=== PATIENT | male | born 1975 | race American Indian/Alaskan Native ===

== ENCOUNTER 2018-11-16 23:53 | Inpatient (IN) | payer MEDICARE ==
[2018-11-17] MEDS ORDERED: BENADRYL IV ONE (00:19)
[2018-11-17] MEDS ORDERED: NACL 0.9% 1000 ML 1,000 ML IV ONE (00:19)
[2018-11-17] MEDS ORDERED: ZOFRAN IV ONE (00:19)
[2018-11-17 00:49] LABS: Basophils # (Auto) 0.1 K/mm3 (0.0-0.1); Basophils % (Auto) 0.9 % (0.0-1.8); Eosinophils # (Auto) 0.1 K/mm3 (0.0-0.4); Eosinophils % (Auto) 1.2 % (0.0-4.3); Hematocrit 33.3 % (35.5-45.6); Hemoglobin 10.2 gm/dl (11.8-15.2); Lymphocytes # (Auto) 1.8 K/mm3 (1.2-5.4); Lymphocytes % (Auto) 19.5 % (13.4-35.0); Mean Corpuscular HGB Conc 31 % (32-34); Mean Corpuscular Volume 73 fl (84-94); Monocytes # (Auto) 0.9 K/mm3 (0.0-0.8); Platelet Count 343 K/mm3 (140-440); Red Blood Count 4.57 M/mm3 (3.65-5.03)
[2018-11-17 00:52] LABS: Mean Corpuscular Hemoglobin 22 pg (28-32); Red Cell Distribution Width 21.6 % (13.2-15.2)
[2018-11-17 01:04] LABS: Bilirubin,Urine NEG (Negative); Blood,Urine NEG (Negative); Color,Urine Yellow (Yellow); Mucus,Urine FEW /HPF; Protein,Urine <15 mg/dL mg/dL (Negative); Urobilinogen,Urine < 2.0 mg/dL (<2.0); WBC,Urine < 1.0 /HPF (0.0-6.0)
[2018-11-17 01:07] LABS: BUN/Creatinine Ratio 23; Blood Urea Nitrogen 21 mg/dL (9-20); Calcium 9.2 mg/dL (8.4-10.2); Hemolysis Index 19
[2018-11-17] MEDS ORDERED: ATIVAN IV ONE (01:30)
[2018-11-17 01:35] LABS: Amphetamine Screen,Urine PRESUMPTIVE NEGATIVE; Benzodiazepines Screen,Urine PRESUMPTIVE NEGATIVE; Cannabinoid Screen,Urine PRESUMPTIVE NEGATIVE; Cocaine Screen,Urine PRESUMPTIVE NEGATIVE; Methadone Screen,Urine PRESUMPTIVE NEGATIVE; Opiate Screen,Urine PRESUMPTIVE NEGATIVE
--- NOTE | 2018-11-17 02:28 | Emergency Department Report ---
ED General Adult HPI - General Chief complaint: Abdominal Pain Stated complaint: ABDOMINAL PAIN Time Seen by Provider: 11/17/18 00:03 Source: patient, EMS Mode of arrival: Stretcher Limitations: Physical Limitation - History of Present Illness Initial comments: Please see amount of history of bipolar disorder and tardive dyskinesia returns to ED for tardive dyskinesia treatment. Pt staying at [facility]. Staff called EMS due to pt's symptoms. Pt was seen in ED yesterday for same. Pt was supposed to be admiited for rhabdomyolysis, however, he left AMA. States he will stay tonight. -: days(s) (1) Consistency: constant Improves with: none Worsens with: none Associated Symptoms: denies: chest pain, fever/chills, nausea/vomiting - Related Data Home Medications Medication Instructions Recorded Confirmed Last Taken Deutetrabenazine [Austedo] 12 mg PO QDAY 10/25/18 10/30/18 Unknown Divalproex Sodium [Depakote] 500 mg PO BID 10/25/18 10/30/18 Unknown Famotidine 20 mg PO TID 10/25/18 10/30/18 Unknown LORazepam [Ativan] 1 mg PO TID 10/25/18 10/30/18 Unknown Propranolol [Inderal] 20 mg PO BID 10/25/18 10/30/18 Unknown traZODone [Desyrel] 50 mg PO QHS 10/25/18 10/30/18 Unknown Deutetrabenazine 24 mg PO HS 10/30/18 10/30/18 Unknown Pantoprazole 40 mg PO DAILY 10/30/18 10/30/18 Unknown Previous Rx's Medication Instructions Recorded Last Taken Type Ondansetron [Zofran ODT TAB] 4 mg PO Q6HR PRN #20 tab.rapdis 10/24/18 Unknown Rx Pantoprazole [Protonix TAB] 40 mg PO BID #60 tablet 10/27/18 Unknown Rx Polyethylene Glycol 3350 [Miralax 17 gm PO QDAY #30 packet 11/14/18 Unknown Rx 3350] Allergies Allergy/AdvReac Type Severity Reaction Status Date / Time No Known Allergies Allergy Verified 10/26/18 00:15 ED Review of Systems ROS: Stated complaint: ABDOMINAL PAIN Other details as noted in HPI Comment: All other systems reviewed and negative Constitutional: denies: chills, fever Respiratory: denies: shortness of breath Cardiovascular: denies: chest pain Gastrointestinal: abdominal pain ED Past Medical Hx - Past Medical History Previous Medical History?: Yes Hx Hypertension: Yes Hx GERD: Yes Hx Psychiatric Treatment: Yes (bipolar, anxiety) Additional medical history: Tardive Dyskinesis - Surgical History Past Surgical History?: No - Social History Smoking Status: Never Smoker Substance Use Type: Prescribed - Medications Home Medications: Home Medications Medication Instructions Recorded Confirmed Last Taken Type Ondansetron [Zofran ODT TAB] 4 mg PO Q6HR PRN #20 tab.rapdis 10/24/18 10/30/18 Unknown Rx Deutetrabenazine [Austedo] 12 mg PO QDAY 10/25/18 10/30/18 Unknown History Divalproex Sodium [Depakote] 500 mg PO BID 10/25/18 10/30/18 Unknown History Famotidine 20 mg PO TID 10/25/18 10/30/18 Unknown History LORazepam [Ativan] 1 mg PO TID 10/25/18 10/30/18 Unknown History Propranolol [Inderal] 20 mg PO BID 10/25/18 10/30/18 Unknown History traZODone [Desyrel] 50 mg PO QHS 10/25/18 10/30/18 Unknown History Pantoprazole [Protonix TAB] 40 mg PO BID #60 tablet 10/27/18 10/30/18 Unknown Rx Deutetrabenazine 24 mg PO HS 10/30/18 10/30/18 Unknown History Pantoprazole 40 mg PO DAILY 10/30/18 10/30/18 Unknown History Polyethylene Glycol 3350 [Miralax 17 gm PO QDAY #30 packet 11/14/18 Unknown Rx 3350] ED Physical Exam - General Limitations: Physical Limitation General appearance: alert - Head Head exam: Present: atraumatic, normocephalic - Eye Eye exam: Present: normal appearance - ENT ENT exam: Present: mucous membranes moist - Neck Neck exam: Present: normal inspection - Respiratory Respiratory exam: Present: normal lung sounds bilaterally. Absent: respiratory distress - Cardiovascular Cardiovascular Exam: Present: regular rate, normal rhythm - GI/Abdominal GI/Abdominal exam: Present: soft. Absent: distended - Extremities Exam Extremities exam: Present: normal inspection - Neurological Exam Neurological exam: Present: alert, oriented X3, other (jerky movements present throughout entire body) - Psychiatric Psychiatric exam: Present: anxious - Skin Skin exam: Present: warm, dry, intact, normal color ED Medical Decision Making - Lab Data Result diagrams: 11/17/18 00:35 11/17/18 00:35 - Medical Decision Making CK remains elevated, however, somewhat improved compared to yesterday's level. Pt given benadryl and ativan, movements improved, but still present. Will admit for rhabdomyolysis. Critical care attestation.: If time is entered above; I have spent that time in minutes in the direct care of this critically ill patient, excluding procedure time. ED Disposition Clinical Impression: Tardive dyskinesia, Rhabdomyolysis Disposition: OP ADMIT IP TO THIS HOSP Is pt being admited?: Yes Condition: Stable Referrals: PRIMARY CARE, [Primary Care Provider] - 3-5 Days
[2018-11-17] MEDS ORDERED: SODIUM BICARBONATE 150 MEQ in D5W 1,000 ML IV ONE (02:45)
[2018-11-17] MEDS ORDERED: ZOFRAN IV PRN (02:48)
[2018-11-17] MEDS ORDERED: TYLENOL PO PRN (02:48)
--- NOTE | 2018-11-17 04:39 | History and Physical Report ---
CHIEF COMPLAINT: Abdominal pain. Other complaint includes change in mental status. 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 The patient was complaining of abdominal pain and was acting abnormally, which made the neighbors to call law enforcement agent and the patient was brought to the Emergency Room. The patient has chronic history of tardive dyskinesia and keeps engaging in abnormal movements of the body that attracts attention. The patient, however, was admitted yesterday because of rhabdomyolysis, but left against medical advice. There is no history of chest pain, no history of shortness of breath, nausea or vomiting. PAST MEDICAL HISTORY: Pertinent for hypertension, gastroesophageal reflux disease, bipolar disorder, anxiety disorder, and tardive dyskinesia. PAST SURGICAL HISTORY: Unremarkable. FAMILY HISTORY: Noncontributory. SOCIAL HISTORY: The patient does not smoke, does not drink alcohol and does not use illicit drugs. MEDICATIONS: The patient is on Zofran sublingual 4 mg every 6 hours as needed for nausea and vomiting. Also, the patient is on Austedo 12 mg during the day and unknown drug at night. The patient is on Depakote 500 mg by mouth twice daily, famotidine 20 mg by mouth 3 times a day, lorazepam 1 mg by mouth 3 times a day, propranolol 20 mg by mouth twice daily, trazodone 50 mg by mouth at bedtime, pantoprazole (Protonix) 40 mg by mouth twice daily, and MiraLax 3350 or 17 grams by mouth daily. ALLERGIES: There are no known drug allergies. REVIEW OF SYSTEMS: CONSTITUTIONAL: There is no fever, no chills, no diaphoresis. HEENT: There is no headache or sore throat. CARDIOVASCULAR SYSTEM: There is no chest pain or orthopnea. RESPIRATORY SYSTEM: There is no shortness of breath or cough. GASTROINTESTINAL SYSTEM: There is no nausea, no vomiting. Abdominal pain present. No diarrhea or constipation. NEUROLOGICAL SYSTEM: Change in mental status noted. Abnormal movement of the body noted. MUSCULOSKELETAL SYSTEM: There is no joint pain or swelling. DERMATOLOGICAL SYSTEM: There is no skin rash or itching. GENITOURINARY SYSTEM: There is no dysuria, hematuria or flank pain. Rest of system review is normal. PHYSICAL EXAMINATION: GENERAL: At the time of exam, the patient was found to be alert, oriented x 3, anxious, but not in acute distress. VITAL SIGNS: Show temperature of 98.5, pulse of 98, respiration 18, and blood pressure not recorded at this time. HEENT: Shows pupils to be equal, round, reactive to light and accommodation. Extraocular muscles are intact. Oral mucosa looks dry. NECK: Supple with no JVD or carotid bruit. CARDIOVASCULAR SYSTEM: Shows normal first and second heart sounds with no gallops or murmur. RESPIRATORY SYSTEM: Shows good air entry on both sides of the lungs with no abnormal breath sounds. GASTROINTESTINAL SYSTEM: Shows abdomen to be full, soft, nontender with no organomegaly or rigidity. NEUROLOGIC: Shows no focal deficit. MUSCULOSKELETAL SYSTEM: Shows no joint swelling or tenderness. DERMATOLOGICAL SYSTEM: Showing no skin rash. GENITOURINARY SYSTEM: Showing no costovertebral angle tenderness. PERTINENT LABORATORY AND IMAGING STUDIES: The patient had CBC done with normal white count, low hemoglobin of 10.2 and low hematocrit of 33.3. The patient's chemistry was unremarkable except for elevated total creatine kinase of 1304. Urinalysis was unremarkable. Toxicology screen came back unremarkable. IMAGING STUDIES: There are no imaging studies done at this time. DIAGNOSES: 1. Rhabdomyolysis. 2. Tardive dyskinesia. PLAN OF ACTION: 1. The patient will be admitted to medical floor on remote telemetry. 2. The patient will be on IV bicarbonate drip with 1 amp of bicarbonate in 1 liter of D5W running at 100 mL an hour for only 1 liter. 3. The patient will have serial CPK checked q. 6 hours x 3 levels. 4. The patient will be on Ativan 1 mg every 2 hours as needed for anxiety and agitation. 5. The patient will be on p.r.n. medications like Tylenol 650 mg by mouth every 4 hours for fever and headache and Zofran 4 mg IV every 8 hours for nausea and vomiting. 6. The patient will be on his home medication as shown in the medication reconciliation section. 7. The patient's diet will be low-sodium diet. JOB# [id number] OCN/NTS
[2018-11-17] MEDS: BENADRYL IV PRN ×3 (07:08→23:01)
[2018-11-17 07:10] LABS: Creatine Kinase MB 22.3 ng/mL (0.0-4.0)
[2018-11-17] MEDS ORDERED: PEPCID PO SCH (08:00)
--- NOTE | 2018-11-17 08:24 | Event Note ---
Date: 11/17/18 Patient seen and examined Medical records reviewed Admitted this morning with abdominal pain and altered level of consciousness Noted to have rhabdomyolysis on IV fluids Agree with the current management Psych evaluation if needed Patient is stable to be transferred to medical floor Plan of care is reviewed with the patient and his nurse
[2018-11-17] MEDS ORDERED: DEUTETRABENAZINE 12 MG PO SCH (10:00)
[2018-11-17] MEDS ORDERED: NACL 0.9% 1000 ML 1,000 ML IV SCH (11:00)
[2018-11-17] MEDS: MIRALAX 3350 PO SCH (15:35)
[2018-11-17] MEDS: PROTONIX PO SCH (15:35)
[2018-11-17] MEDS: ATIVAN IV PRN ×2 (15:39→23:01)
[2018-11-17] MEDS: INDERAL PO SCH ×2 (18:27→23:01)
[2018-11-17] MEDS ORDERED: DESYREL PO SCH (22:00)
[2018-11-17] MEDS ORDERED: DEUTETRABENAZINE 24 MG PO SCH (22:00)
[2018-11-18 05:53] LABS: Creatine Kinase MB 16.7 ng/mL (0.0-4.0)
[2018-11-18 05:57] LABS: BUN/Creatinine Ratio 31; Blood Urea Nitrogen 22 mg/dL (9-20); Calcium 9.2 mg/dL (8.4-10.2); Hemolysis Index 23
[2018-11-18] MEDS: INDERAL PO SCH (10:44)
[2018-11-18] MEDS: PROTONIX PO SCH (10:44)
[2018-11-18] MEDS: MIRALAX 3350 PO SCH (10:45)
[2018-11-18 10:46] VITALS: BP 118/72
--- NOTE | 2018-11-18 12:35 | Consultation ---
History of Present Illness - Reason for Consult Consult date: 11/18/18 Reason for consult: Mental Health Evaluation Requesting physician: AYDIN MUELLER - Chief Complaint Chief complaint: "I am okay" - History of Present Psychiatric Illness 43 y.o. AA male who presented to the Er for TD symptoms. Today the patient is calm and cooperative during the assessment. He stated that he takes Depakote and Trazodone. He couldn't elaborate if he take other medications (antipsychotics PO or IM) or give me the provider a mental health hx. He stated that he has a PCP who manage all his medications. Per observation, no involuntary movement during the interview by the patient. He denies SI/HI's and AVH's. Medications and Allergies Allergies Allergy/AdvReac Type Severity Reaction Status Date / Time No Known Allergies Allergy Verified 10/26/18 00:15 Home Medications Medication Instructions Recorded Confirmed Last Taken Type Deutetrabenazine [Austedo] 12 mg PO QDAY 10/25/18 11/17/18 Unknown History Divalproex Sodium [Depakote] 500 mg PO BID 10/25/18 11/17/18 Unknown History LORazepam [Ativan] 1 mg PO TID 10/25/18 11/17/18 Unknown History Propranolol [Inderal] 20 mg PO BID 10/25/18 11/17/18 Unknown History traZODone [Desyrel] 50 mg PO HS 11/17/18 11/17/18 Unknown History Deutetrabenazine 24 mg PO HS 11/18/18 Unknown Rx Polyethylene Glycol 3350 [Miralax 17 gm PO QDAY powd.pack 11/18/18 Unknown Rx 3350] Active Meds: Active Medications Acetaminophen (Tylenol) 650 mg PO Q4H PRN PRN Reason: Fever >101 Diphenhydramine HCl (Benadryl) 25 mg IV Q6H PRN PRN Reason: Itching Last Admin: 11/17/18 23:01 Dose: 25 mg Documented by: Divalproex Sodium (Depakote Dr) 500 mg PO BID CJ Last Admin: 11/18/18 10:44 Dose: 500 mg Documented by: Sodium Chloride (Nacl 0.9% 1000 Ml) 1,000 mls @ 100 mls/hr IV DIRECT CJ Lorazepam (Ativan) 1 mg IV Q2H PRN PRN Reason: Agitation Last Admin: 11/17/18 23:01 Dose: 1 mg Documented by: Miscellaneous Medication (Deutetrabenazine) 24 mg PO HS [facility] Miscellaneous Medication (Deutetrabenazine [Austedo]) 12 mg PO QDAY [facility] Ondansetron HCl (Zofran) 4 mg IV Q8H PRN PRN Reason: Nausea And Vomiting Pantoprazole Sodium (Protonix) 40 mg PO DAILY [facility] Last Admin: 11/18/18 10:44 Dose: 40 mg Documented by: Polyethylene Glycol (Miralax 3350) 17 gm PO QDAY [facility] Last Admin: 11/18/18 10:45 Dose: 17 gm Documented by: Propranolol HCl (Inderal) 20 mg PO BID [facility] Last Admin: 11/18/18 10:44 Dose: 20 mg Documented by: Trazodone HCl (Desyrel) 50 mg PO QHS [facility] Last Admin: 11/17/18 23:01 Dose: 50 mg Documented by: Past psychiatric history - Past Medical History Past Medical History: GERD, hypertension Past Surgical History: No surgical history - past Psychiatric treatment and history psychiatric treatment history: Unable to obtain psy hx and fam psy hx. - Social History Social history: other (Reside at long term) Mental Status Exam - Vital signs Last Vital Signs Temp 97.4 F L 11/18/18 04:07 Pulse 64 11/18/18 10:44 Resp 18 11/18/18 04:07 BP 118/72 11/18/18 10:44 Pulse Ox 100 11/18/18 04:07 - Exam Narrative exam: MSE: Appearance: calm, cooperative Behavior: regular eye contact Speech: incoherent speech intermittently Mood: "okay" Affect: congruent to mood Thought Process: linear Thought Content: denies SI/HI's and AVH's Motor Activity: lying in bed Cognition: A/O x3, no involuntary movement Insight: fair Judgment: fair Results Result Diagrams: 11/17/18 00:35 11/18/18 04:38 Abnormal lab results 11/18/18 Range/Units 04:38 BUN 22 H (9-20) mg/dL Creatinine 0.7 L (0.8-1.5) mg/dL Total Creatine Kinase 922 H (55-170) units/L CK-MB (CK-2) 16.7 H (0.0-4.0) ng/mL All other labs normal. Assessment and Plan Assessment and plan: Impression: Today the patient is calm and cooperative during the assessment. Recommendation/Plan: Gather collateral information to help determine proper treatment if indicated. Staffed with Dr Keon Gautam.
--- NOTE | 2018-11-18 12:58 | Progress Note ---
Assessment and Plan Assessment and plan: --Rhabdomyolysis; CK levels trending down Physical G nonfunction, continue IV fluids and supportive care --Tardive Dyskinesia: Chronic continue supportive care --History of schizophrenia; continue current psych medications Psych following --DVT prophylaxis; Lovenox Closely monitor the patient possible discharge in 1-2 days if rhabdomyolysis improved History Interval history: Patient seen and examined medical records reviewed Patient feels better no new complaints CK levels trending down No new events reported by the nursing Vital signs normal. Hospitalist Physical - Constitutional Vitals: Temp Pulse Resp BP Pulse Ox 97.4 F L 64 18 118/72 100 11/18/18 04:07 11/18/18 10:44 11/18/18 04:07 11/18/18 10:44 11/18/18 04:07 General appearance: Present: no acute distress, well-nourished, other (involuntary movements/TD) - EENT Eyes: Present: PERRL, EOM intact - Neck Neck: Present: supple, normal ROM - Respiratory Respiratory effort: normal Respiratory: bilateral: diminished, negative: rales, rhonchi, wheezing - Cardiovascular Rhythm: regular Heart Sounds: Present: S1 & S2 - Extremities Extremities: no ischemia, No edema Extremity abnormal: edema, cyanosis Peripheral Pulses: within normal limits - Abdominal General gastrointestinal: soft, non-tender, non-distended, normal bowel sounds - Integumentary Integumentary: Present: clear, warm - Psychiatric Psychiatric: appropriate mood/affect, cooperative - Neurologic Neurologic: CNII-XII intact, moves all extremities Results - Labs CBC & Chem 7: 11/17/18 00:35 11/18/18 04:38 Labs: Laboratory Last Values WBC 9.1 K/mm3 (4.5-11.0) 11/17/18 00:35 RBC 4.57 M/mm3 (3.65-5.03) 11/17/18 00:35 Hgb 10.2 gm/dl (11.8-15.2) L 11/17/18 00:35 Hct 33.3 % (35.5-45.6) L 11/17/18 00:35 MCV 73 fl (84-94) L 11/17/18 00:35 MCH 22 pg (28-32) L 11/17/18 00:35 MCHC 31 % (32-34) L 11/17/18 00:35 RDW 21.6 % (13.2-15.2) H 11/17/18 00:35 Plt Count 343 K/mm3 (140-440) 11/17/18 00:35 Lymph % (Auto) 19.5 % (13.4-35.0) 11/17/18 00:35 [place] % (Auto) 10.0 % (0.0-7.3) H 11/17/18 00:35 Eos % (Auto) 1.2 % (0.0-4.3) 11/17/18 00:35 Baso % (Auto) 0.9 % (0.0-1.8) 11/17/18 00:35 Lymph # 1.8 K/mm3 (1.2-5.4) 11/17/18 00:35 [place] # 0.9 K/mm3 (0.0-0.8) H 11/17/18 00:35 Eos # 0.1 K/mm3 (0.0-0.4) 11/17/18 00:35 Baso # 0.1 K/mm3 (0.0-0.1) 11/17/18 00:35 Seg Neutrophils % 68.4 % (40.0-70.0) 11/17/18 00:35 Seg Neutrophils # 6.3 K/mm3 (1.8-7.7) 11/17/18 00:35 Sodium 138 mmol/L (137-145) 11/18/18 04:38 Potassium 4.4 mmol/L (3.6-5.0) 11/18/18 04:38 Chloride 101.6 mmol/L (98-107) 11/18/18 04:38 Carbon Dioxide 26 mmol/L (22-30) 11/18/18 04:38 Anion Gap 15 mmol/L 11/18/18 04:38 BUN 22 mg/dL (9-20) H 11/18/18 04:38 Creatinine 0.7 mg/dL (0.8-1.5) L 11/18/18 04:38 Estimated GFR > 60 ml/min 11/18/18 04:38 BUN/Creatinine Ratio 31 % 11/18/18 04:38 Glucose 86 mg/dL (75-100) 11/18/18 04:38 Calcium 9.2 mg/dL (8.4-10.2) 11/18/18 04:38 Total Creatine Kinase 922 units/L (55-170) H 11/18/18 04:38 CK-MB (CK-2) 16.7 ng/mL (0.0-4.0) H 11/18/18 04:38 CK-MB (CK-2) Rel Index 1.8 (0-4) 11/17/18 05:50 Urine Color Yellow (Yellow) 11/17/18 00:52 Urine Turbidity Clear (Clear) 11/17/18 00:52 Urine pH 5.0 (5.0-7.0) 11/17/18 00:52 Ur Specific Todd 1.021 (1.003-1.030) 11/17/18 00:52 Urine Protein <15 mg/dl mg/dL (Negative) 11/17/18 00:52 Urine Glucose (UA) Neg mg/dL (Negative) 11/17/18 00:52 Urine Ketones Neg mg/dL (Negative) 11/17/18 00:52 Urine Blood Neg (Negative) 11/17/18 00:52 Urine Nitrite Neg (Negative) 11/17/18 00:52 Urine Bilirubin Neg (Negative) 11/17/18 00:52 Urine Urobilinogen < 2.0 mg/dL (<2.0) 11/17/18 00:52 Ur Leukocyte Esterase Neg (Negative) 11/17/18 00:52 Urine WBC (Auto) < 1.0 /HPF (0.0-6.0) 11/17/18 00:52 Urine RBC (Auto) 1.0 /HPF (0.0-6.0) 11/17/18 00:52 Urine Mucus Few /HPF 11/17/18 00:52 Urine Opiates Screen Presumptive negative 11/17/18 00:52 Urine Methadone Screen Presumptive negative 11/17/18 00:52 Ur Barbiturates Screen Presumptive negative 11/17/18 00:52 Ur Phencyclidine Scrn Presumptive negative 11/17/18 00:52 Ur Amphetamines Screen Presumptive negative 11/17/18 00:52 U Benzodiazepines Scrn Presumptive negative 11/17/18 00:52 Urine Cocaine Screen Presumptive negative 11/17/18 00:52 U Marijuana (THC) Screen Presumptive negative 11/17/18 00:52 Drugs of Abuse Note Disclamer 11/17/18 00:52 Plasma/Serum Alcohol < 0.01 % (0-0.07) 11/17/18 00:35
--- NOTE | 2018-11-18 15:45 | Discharge Summary ---
Providers - Providers Date of Admission: 11/17/18 02:41 Date of discharge: 11/18/18 Attending physician: AYDIN MUELLER 11/17/18 10:40 psychiatry consult [Consult to Mental Health] [CONS] Routine Reason For Exam: schizophrenia/TD Place consult to:: cassandra consultant Notified:: TORIBIO Phone number called:: [phone] Time called:: 17:24 Primary care physician: JOHANA ALLISON MD Hospitalization Condition: Stable Disposition: DC/[place]-[facility] ANOTHER TYPE [facility] Time spent for discharge: 31 min Core Measure Documentation - Palliative Care Palliative Care/ Comfort Measures: Not Applicable - Core Measures Any of the following diagnoses?: none Exam - Constitutional Vitals: Temp Pulse Resp BP Pulse Ox 97.4 F L 64 18 118/72 100 11/18/18 04:07 11/18/18 10:44 11/18/18 04:07 11/18/18 10:44 11/18/18 04:07 General appearance: Present: no acute distress, well-nourished - EENT Eyes: Present: PERRL, EOM intact - Neck Neck: Present: supple, normal ROM - Respiratory Respiratory effort: normal Respiratory: negative: rales, rhonchi, wheezing - Cardiovascular Rhythm: regular Heart Sounds: Present: S1 & S2 - Extremities Extremities: no ischemia, No edema - Abdominal General gastrointestinal: Present: soft, non-tender, non-distended, normal bowel sounds - Integumentary Integumentary: Present: clear, warm - Musculoskeletal Musculoskeletal: other (Tardive dyskinesia) - Psychiatric Psychiatric: appropriate mood/affect, cooperative - Neurologic Neurologic: moves all extremities Plan Activity: advance as tolerated, fall precautions Diet: regular Additional Instructions: Plenty oral foods. Check CPK levels on 11/20/2018. Fall precautions Follow up with: JOHANA ALLISON MD [Primary Care Provider] - 3-5 Days MARY MESA MD [Staff Physician] - 7 Days
== END 2018-11-18 17:30 | disposition home or self-care (01) | DRG 558 ==
LOC: ED 23:53 → 4A 11-17 02:41
PROVIDERS: ADMIT Internal Medicine; ATTEND Internal Medicine
DX: M62.82 Rhabdomyolysis (principal); G24.01 Drug induced subacute dyskinesia; R40.4 Transient alteration of awareness; F31.9 Bipolar disorder, unspecified; K21.9 Gastro-esophageal reflux disease without esophagitis; I10 Essential (primary) hypertension; F41.9 Anxiety disorder, unspecified; F20.9 Schizophrenia, unspecified
CPT/HCPCS: 36415; 80048; 80307; 80320; 81001; 82550; 82553; 85025; 87116; 99406; G0378; G0480; J1200; J2060; J2405; J7030; J7070

== ENCOUNTER 2018-11-21 20:01 | Emergency (ER) | payer MEDICARE ==
[2018-11-21] MEDS ORDERED: ATIVAN IM ONE (20:03)
[2018-11-21] MEDS ORDERED: HALDOL IM ONE (20:03)
[2018-11-21] MEDS ORDERED: BENADRYL IM ONE (20:03)
[2018-11-21] MEDS ORDERED: NACL 0.9% 1000 ML 1,000 ML IV ONE (21:11)
--- NOTE | 2018-11-21 21:17 | Emergency Department Report ---
ED General Adult HPI - General Stated complaint: AMS Time Seen by Provider: 11/21/18 21:06 Source: RN/MD, EMS Mode of arrival: Stretcher - History of Present Illness Initial comments: 43-year-old male with schizophrenia brought to the ED from [place] for abdominal pain. Patient initially uncooperative with exam, really around the stretcher, nurses unable to properly triage patient. Verbal orders given from another ER physician to medicate patient with Benadryl, Haldol, Ativan. Patient has multiple visits to this ER for abdominal pain, usually presenting with what patient states is tardive dyskinesia from psych medication. Patient is usually rolling around on the stretcher and unable to calm down. Currently the patient is sedated, so I have been unable to gain any information about this visit from the patient. -: unknown - Related Data Home Medications Medication Instructions Recorded Confirmed Last Taken Deutetrabenazine [Austedo] 12 mg PO QDAY 10/25/18 11/17/18 Unknown Divalproex Sodium [Depakote] 500 mg PO BID 10/25/18 11/17/18 Unknown LORazepam [Ativan] 1 mg PO TID 10/25/18 11/17/18 Unknown Propranolol [Inderal] 20 mg PO BID 10/25/18 11/17/18 Unknown traZODone [Desyrel] 50 mg PO HS 11/17/18 11/17/18 Unknown Previous Rx's Medication Instructions Recorded Last Taken Type Deutetrabenazine 24 mg PO HS 11/18/18 Unknown Rx Polyethylene Glycol 3350 [Miralax 17 gm PO QDAY powd.pack 11/18/18 Unknown Rx 3350] Dicyclomine [Bentyl] 20 mg PO QID PRN #20 tablet 11/22/18 Unknown Rx Promethazine [Phenergan TAB] 25 mg PO Q6HR PRN #20 tab 11/22/18 Unknown Rx Allergies Allergy/AdvReac Type Severity Reaction Status Date / Time No Known Allergies Allergy Verified 10/26/18 00:15 ED Review of Systems ROS: Stated complaint: AMS Other details as noted in HPI ED Past Medical Hx - Past Medical History Hx Hypertension: Yes Hx Heart Attack/AMI: No Hx Congestive Heart Failure: No Hx Diabetes: No Hx Deep Vein Thrombosis: No Hx GERD: Yes Hx Psychiatric Treatment: Yes (bipolar, anxiety) Hx Asthma: No Hx COPD: No Additional medical history: Tardive Dyskinesis - Surgical History Hx Coronary Stent: No Hx Pacemaker: No Hx Internal Defibrillator: No - Social History Smoking Status: Never Smoker Substance Use Type: Prescribed - Medications Home Medications: Home Medications Medication Instructions Recorded Confirmed Last Taken Type Deutetrabenazine [Austedo] 12 mg PO QDAY 10/25/18 11/17/18 Unknown History Divalproex Sodium [Depakote] 500 mg PO BID 10/25/18 11/17/18 Unknown History LORazepam [Ativan] 1 mg PO TID 10/25/18 11/17/18 Unknown History Propranolol [Inderal] 20 mg PO BID 10/25/18 11/17/18 Unknown History traZODone [Desyrel] 50 mg PO HS 11/17/18 11/17/18 Unknown History Deutetrabenazine 24 mg PO HS 11/18/18 Unknown Rx Polyethylene Glycol 3350 [Miralax 17 gm PO QDAY powd.pack 11/18/18 Unknown Rx 3350] Dicyclomine [Bentyl] 20 mg PO QID PRN #20 tablet 11/22/18 Unknown Rx Promethazine [Phenergan TAB] 25 mg PO Q6HR PRN #20 tab 11/22/18 Unknown Rx ED Course Vital Signs 11/21/18 11/21/18 11/21/18 21:00 21:42 21:45 Temperature 98.8 F Pulse Rate 114 H Respiratory 16 Rate Blood Pressure 131/78 O2 Sat by Pulse 100 100 100 Oximetry 11/21/18 11/21/18 11/21/18 22:00 22:15 22:30 Temperature Pulse Rate Respiratory Rate Blood Pressure 120/70 135/82 118/71 O2 Sat by Pulse 100 Oximetry 11/21/18 11/21/18 11/21/18 22:45 23:00 23:15 Temperature Pulse Rate Respiratory Rate Blood Pressure 129/85 138/79 130/72 O2 Sat by Pulse 100 100 Oximetry 11/21/18 11/21/18 11/22/18 23:30 23:45 00:00 Temperature Pulse Rate Respiratory Rate Blood Pressure 131/74 141/81 120/70 O2 Sat by Pulse 100 100 Oximetry 11/22/18 11/22/18 11/22/18 00:20 00:28 00:30 Temperature Pulse Rate 93 H 95 H Respiratory 15 15 Rate Blood Pressure 154/87 154/87 135/84 O2 Sat by Pulse 98 100 100 Oximetry 11/22/18 11/22/18 11/22/18 00:46 01:00 01:08 Temperature Pulse Rate 94 H 92 H 90 Respiratory 22 16 Rate Blood Pressure 135/84 123/74 O2 Sat by Pulse 100 100 Oximetry - Reevaluation(s) Reevaluation #1: 11/22/18 01:00 Pt now awake and alert. Calm and cooperative. Sitting still on stretcher. History of gastritis. Denies abdominal pain at this time. Feels ready for discharge ED Medical Decision Making - Lab Data Result diagrams: 11/21/18 21:25 11/21/18 21:25 - Radiology Data Radiology results: report reviewed, image reviewed - Medical Decision Making 43-year-old male with history of schizophrenia and chronic abdominal pain presents to ED with exacerbation of abdominal pain. Patient initially uncooperative, rolling around on stretcher. At that time patient was given Haldol, Benadryl, and Ativan. Patient is been resting during most of ED stay. Labs were drawn which were unremarkable. Acute abdominal series also negative. Patient had underwent upper endoscopy on October 26, almost 1 month ago, which showed gastritis and esophagitis with ulcers. Patient was placed on a PPI. Currently, the patient and cooperative. States his symptoms have resolved at this time. Return precautions given, with discharge home. - Differential Diagnosis gastritis, perforated viscus Critical care attestation.: If time is entered above; I have spent that time in minutes in the direct care of this critically ill patient, excluding procedure time. ED Disposition Clinical Impression: Gastritis Disposition: - TO HOME OR SELFCARE Is pt being admited?: No Condition: Stable Instructions: Gastritis (ED), Diet for Ulcers and Gastritis (ED) Prescriptions: Dicyclomine [Bentyl] 20 mg PO QID PRN #20 tablet PRN Reason: abdominal pain Promethazine [Phenergan TAB] 25 mg PO Q6HR PRN #20 tab PRN Reason: Nausea Referrals: PRIMARY CARE, [Primary Care Provider] - 3-5 Days [facility] [Provider Group] - 3-5 Days [facility] [Provider Group] - 3-5 Days Time of Disposition: :
[2018-11-21 21:48] LABS: Basophils # (Auto) 0.1 K/mm3 (0.0-0.1); Basophils % (Auto) 0.6 % (0.0-1.8); Hematocrit 29.6 % (35.5-45.6); Hemoglobin 9.3 gm/dl (11.8-15.2); Lymphocytes # (Auto) 0.6 K/mm3 (1.2-5.4); Lymphocytes % (Auto) 5.2 % (13.4-35.0); Mean Corpuscular HGB Conc 31 % (32-34); Mean Corpuscular Volume 72 fl (84-94); Monocytes # (Auto) 0.8 K/mm3 (0.0-0.8); Monocytes % (Auto) 6.5 % (0.0-7.3); Platelet Count 270 K/mm3 (140-440); Red Blood Count 4.11 M/mm3 (3.65-5.03); Red Cell Distribution Width 22.4 % (13.2-15.2)
[2018-11-21 22:18] LABS: Alanine Aminotransferase 54 units/L (7-56); Albumin 4.1 g/dL (3.9-5); BUN/Creatinine Ratio 36; Blood Urea Nitrogen 40 mg/dL (9-20); Calcium 9.3 mg/dL (8.4-10.2); Hemolysis Index 35
[2018-11-21 22:40] LABS: Bilirubin,Urine NEG (Negative); Blood,Urine NEG (Negative); Color,Urine Yellow (Yellow); Mucus,Urine FEW /HPF; Protein,Urine <15 mg/dL mg/dL (Negative); Urobilinogen,Urine < 2.0 mg/dL (<2.0); WBC,Urine < 1.0 /HPF (0.0-6.0)
[2018-11-21 22:45] LABS: Amphetamine Screen,Urine PRESUMPTIVE NEGATIVE; Benzodiazepines Screen,Urine PRESUMPTIVE NEGATIVE; Cannabinoid Screen,Urine PRESUMPTIVE NEGATIVE; Cocaine Screen,Urine PRESUMPTIVE NEGATIVE; Methadone Screen,Urine PRESUMPTIVE NEGATIVE; Opiate Screen,Urine PRESUMPTIVE NEGATIVE
--- NOTE | 2018-11-22 00:24 | XRay Report ---
FINAL REPORT PROCEDURE: XR ABD SERIES W CXR 1V TECHNIQUE: Abdominal series complete, including supine and upright AP views of the abdomen and front al chest. HISTORY: abd pain COMPARISON: No prior studies are available for comparison. FINDINGS: Heart: Normal. Mediastinum/Vessels: Normal. Lungs/Pleural space: Normal. Bowel gas pattern: Nonobstructive. Masses or calcifications: None. Bony structures: No acute osseous abnormality. Other: No free intraperitoneal air. IMPRESSION: No acute abnormality.
[2018-11-22 02:24] VITALS: BP 124/74
== END 2018-11-22 02:22 | disposition home or self-care (01) ==
LOC: ED 20:01
DX: K29.70 Gastritis, unspecified, without bleeding (principal); I10 Essential (primary) hypertension; K21.9 Gastro-esophageal reflux disease without esophagitis; Z79.899 Other long term (current) drug therapy
CPT/HCPCS: 36415; 74022; 80053; 80307; 81001; 85025; 96360; 96372; 99284; G0480; J1200; J1630; J2060; J7030; 80320